=== PATIENT | male | born 1955 | race Caucasian/White ===

== ENCOUNTER 2018-09-22 06:39 | Day surgery (SDC) | payer MEDICARE, MEDICAID ==
[~2018-09-22] VITALS: Ht 175.3 cm; Wt 78.2 kg
[2018-09-22] MEDS ORDERED: normal saline 1000ml 1,000 ML IV SCH ×2 (07:05→08:34)
[2018-09-22] MEDS ORDERED: IBUP-1986 PO (07:08)
[2018-09-22] MEDS ORDERED: LORA1TAB PO (07:08)
[2018-09-22] MEDS ORDERED: ALBU18HF2 INH (07:08)
[2018-09-22 07:10] VITALS: BP 132/90
[2018-09-22] MEDS ORDERED: HYDR-4353 PO (07:29)
[2018-09-22] MEDS ORDERED: FOLI1TAB16 PO (07:32)
[2018-09-22 07:50] LABS: ALBUMIN 2.8 G/DL (3.4-5.0); ANION GAP 9 (8-16); BLOOD UREA NITROGEN 18 MG/DL (7-18); BUN/CREATININE RATIO 14.6 (5.4-32.0); CALCIUM 9.4 MG/DL (8.5-10.1); CHLORIDE 106 MMOL/L (99-107); CREATININE 1.23 MG/DL (0.60-1.10); GLUCOSE 71 MG/DL (70-104); POTASSIUM 4.8 MMOL/L (3.5-5.1); SODIUM 141 MMOL/L (135-145); eGFR 60 ML/MIN
[2018-09-22 07:55] LABS: BASOPHILS # (AUTO) 0.1 X10'3 (0-0.2); EOSINOPHILS # (AUTO) 0.1 X10'3 (0-0.9); EOSINOPHILS % (AUTO) 2.1 % (0-6); HEMATOCRIT 35.5 % (42.0-52.0); HEMOGLOBIN 11.8 g/dl (14.0-17.9); LYMPHOCYTES # (AUTO) 1.4 X10'3 (1.1-4.8); LYMPHOCYTES % (AUTO) 25.6 % (21-51); MEAN CORPUSCULAR HEMOGLOBIN 31.9 PG (27.0-31.0); MEAN CORPUSCULAR HGB CONC 33.3 g/dL (33.0-36.5); MEAN CORPUSCULAR VOLUME 95.9 FL (78-98); MEAN PLATELET VOLUME 8.6 FL (7.4-10.4); MONOCYTES # (AUTO) 1.2 X10'3 (0-0.9); MONOCYTES % (AUTO) 22.4 % (2-12); NEUTROPHILS # (AUTO) 2.7 X10'3 (1.8-7.7); NEUTROPHILS % (AUTO) 48.9 % (42-75); PLATELET COUNT 422 X10'3 (140-440); RED CELL DISTRIBUTION WIDTH 16.6 % (11.5-14.5); WHITE BLOOD COUNT 5.5 X10'3 (4.5-11.0)
[2018-09-22] MEDS ORDERED: heparin sodium, porcine/PF 100unit/ml 5ML syringe ONE (08:12)
[2018-09-22] MEDS ORDERED: fentaNYL/PF 50MCG/1 ML 2ML syringe ONE ×2 (08:13→08:54)
[2018-09-22] MEDS ORDERED: LIDOcaine 1%/PF 5ML 10 MG/ML VIAL ONE (08:13)
[2018-09-22] MEDS ORDERED: midazolam 2 mg/2 ml injection ONE (08:13)
[2018-09-22] MEDS ORDERED: LIDOcaine 1% 30ml preserv. free vial SQ ONE (08:20)
[2018-09-22] MEDS ORDERED: heparin sodium, porcine/PF 100unit/ml 5ML syringe ICATH ONE (08:20)
[2018-09-22] MEDS ORDERED: fentaNYL/PF 50MCG/1 ML 2ML syringe IV PRN (08:20)
[2018-09-22] MEDS ORDERED: midazolam 2 mg/2 ml injection IV PRN (08:20)
[2018-09-22 08:49] LABS: ANISOCYTOSIS 1+; NUCLEATED RED BLOOD CELLS 1 /100WBC (0-0); PLATELET ESTIMATE NORMAL; TOTAL CELLS COUNTED 100
[2018-09-22 08:50] LABS: POLYCHROMASIA 1+
[2018-09-22 09:36] VITALS: BP 130/86
[2018-09-22 09:51] VITALS: BP 130/88
[2018-09-22 10:07] VITALS: BP 125/84
== END 2018-09-22 10:40 | disposition home or self-care (01) ==
LOC: SSTAY O 06:39
PROVIDERS: ATTEND Radiology Diagnostic Radiology
DX: C34.11 Malignant neoplasm of upper lobe, right bronchus or lung (principal); J44.9 Chronic obstructive pulmonary disease, unspecified; F17.290 Nicotine dependence, other tobacco product, uncomplicated; Z86.14 Personal history of Methicillin resistant Staphylococcus aureus infection; Z98.890 Other specified postprocedural states; Z85.47 Personal history of malignant neoplasm of testis; Z79.899 Other long term (current) drug therapy; Z88.8 Allergy status to other drugs, medicaments and biological substances; Z88.2 Allergy status to sulfonamides
CPT/HCPCS: 36415; 36561; 76937; 77001; 80048; 85025; 99152; 99153; C1788; C1894; J1642; J2250; J3010; J7030; A6213